=== PATIENT | female | born 1955 | race African-American/Black ===

== ENCOUNTER 2018-01-12 21:47 | Emergency (ER) | payer OTHER ==
[~2018-01-12] VITALS: Ht 154.9 cm; Wt 63.6 kg
[2018-01-12] MEDS ORDERED: ANTIHYPERTENSIVE PO (22:22)
[2018-01-12] MEDS ORDERED: AmLODIPine BESYLATE 5 MG TABLET PO ONE (22:45)
[2018-01-13 00:30] VITALS: BP 196/100
== END 2018-01-13 00:32 | disposition home or self-care (01) ==
LOC: EMS 21:49
DX: Z02.79 Encounter for issue of other medical certificate (principal); I10 Essential (primary) hypertension
CPT/HCPCS: 99283